=== PATIENT | male | born 1955 | race Caucasian/White ===

== ENCOUNTER 2022-03-11 22:45 | Emergency (ER) | payer BC ==
[2022-03-11] MEDS ORDERED: Metoclopramide 10 MG/2 ML SDV IVPUSH ONE (23:11)
[2022-03-11] MEDS ORDERED: HYDROmorphone 0.5 MG/0.5 ML Syringe IVPUSH ONE (23:11)
[2022-03-11] MEDS ORDERED: diphenhydrAMINE 50 MG/ML SDV IVPUSH ONE (23:11)
[2022-03-11] MEDS ORDERED: Dextrose 5%-Lactated Ringers 1,000 ML IV SCH (23:15)
[2022-03-12] MEDS ORDERED: Levofloxacin 250 MG Tab PO ONE (00:54)
[2022-03-12] MEDS ORDERED: Dextrose 5%-Lactated Ringers 1,000 ML IV SCH (01:00)
[2022-03-12 02:02] LABS: CORONAVIRUS COVID-19 NAA NEGATIVE (NEGATIVE)
[2022-03-12 03:06] VITALS: BP 132/74; PULSE 65
== END 2022-03-12 02:56 | disposition home or self-care (01) ==
LOC: JD.ED 22:45
DX: A05.9 Bacterial foodborne intoxication, unspecified (principal); Z79.899 Other long term (current) drug therapy; Z20.822 Contact with and (suspected) exposure to COVID-19
CPT/HCPCS: 0241U; 36415; 80053; 83690; 83735; 83880; 85025; 86140; 96361; 96374; 96375; 99284; A9270; J1170; J1200; J2765; J7121

== ENCOUNTER 2023-03-05 07:22 | Emergency (ER) | payer BC ==
[2023-03-05] MEDS ORDERED: Sodium Chloride 0.9% 10 ML Syringe FLUSH PRN (07:59)
[2023-03-05 08:05] LABS: BASOPHILS PERCENT AUTO 0.4 % (0.0-1.0); EOSINOPHILS ABSOLUTE AUTO 0.2 K/mm3 (0.0-0.4); EOSINOPHILS PERCENT AUTO 3.5 % (0.0-6.0); HEMATOCRIT 46.9 % (42.0-52.0); HEMOGLOBIN 16.4 gm/dl (14.0-18.0); IMMATURE GRAN ABSOLUTE AUTO 0.01 K/mm3 (0.00-0.05); IMMATURE GRAN PERCENT AUTO 0.2 % (0.0-0.4); LYMPHOCYTES ABSOLUTE AUTO 1.5 K/mm3 (1.0-4.8); LYMPHOCYTES PERCENT AUTO 32.6 % (24.0-44.0); MEAN CORPUSCULAR HEMOGLOBIN 29.9 pg (28.0-32.0); MEAN CORPUSCULAR VOLUME 85.6 fl (83.0-99.0); MEAN PLATELET VOLUME 10.4 fl (9.4-12.4); MONOCYTES ABSOLUTE AUTO 0.4 K/mm3 (0.0-0.8); MONOCYTES PERCENT AUTO 9.1 % (0.0-8.0); NEUTROPHILS ABSOLUTE AUTO 2.5 K/mm3 (1.8-7.7); NEUTROPHILS PERCENT AUTO 54.2 % (41.0-71.0); PLATELET COUNT,PLT 256 K/mm3 (150-400); RED BLOOD CELL COUNT 5.48 M/mm3 (4.52-5.90)
[2023-03-05 08:19] LABS: ALANINE AMINOTRANSFERASE,ALT 28 U/L (16-63); ALBUMIN 3.6 g/dl (3.4-5.0); ALKALINE PHOSPHATASE 75 U/L (46-116); ASPARTATE AMNIOTRANSFERASE,AST 17 U/L (15-37); BLOOD UREA NITROGEN,BUN 14 mg/dL (7-18); BUN/CREATININE RATIO 15.6 (14-18); C-REACTIVE PROTEIN <0.2 mg/dL (<1.0); CALCIUM 8.6 mg/dL (8.5-10.1); CARBON DIOXIDE,CO2 25 mEq/L (21-32); CHLORIDE,CL 105 mEq/L (98-107); CREATININE 0.9 mg/dL (0.7-1.3); EST CRCL DRUG DOSING (CG) 87.15 mL/min; ESTIMATED GFR 95 mL/min (>60); GLUCOSE RANDOM 98 mg/dL (70-99); PROTEIN TOTAL,TP 7.3 g/dl (6.4-8.2); SODIUM,NA 141 mEq/L (136-145); TROPONIN I HIGH SENSITIVITY 6 pg/mL (<=76)
[2023-03-05 10:01] VITALS: BP 114/93; PULSE 66
== END 2023-03-05 10:02 | disposition home or self-care (01) ==
LOC: JD.ED 07:22
DX: R07.89 Other chest pain (principal); Z86.16 Personal history of COVID-19; Z79.899 Other long term (current) drug therapy
CPT/HCPCS: 36415; 71046; 80053; 83735; 84484; 85025; 85379; 86140; 93005; 99285; J3490; 93010; 99282